=== PATIENT | male | born 2005 | race Two or more races ===

== ENCOUNTER 2025-06-02 20:51 | Emergency (ER) | payer MEDICAID, SELFPAY ==
[2025-06-02 20:54] VITALS: BMI 22.9
--- NOTE | 2025-06-02 21:05 | XR_ITS ---
Examination: Wrist, left 3 views Technique: Wrist AP, oblique, lateral 3 views Date and time of exam: June 02, 2024 0906 hrs. Indications: Patient fell today with into the wrist, wrist pain. Findings: Fractures distal third of the navicular without significant displacement Radius ulna intact Impression: Acute fractures distal third of the navicular without significant displacement
[2025-06-02 22:19] VITALS: BP 125/76; PULSE 73; RESP 16; TEMP 37; O2SAT 99
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
[2025-06-02] MEDS: IBUPROFEN TAB 400 MG TABLET 800 MG PO (22:51)
== END 2025-06-02 22:58 | disposition home or self-care (01) ==
PROVIDERS: Emergency Provider Emergency Medicine; PCP Family Medicine
DX: S92.255A Nondisplaced fracture of navicular [scaphoid] of left foot, initial encounter for closed fracture (principal); V29.91XA Electric (assisted) bicycle rider (driver) (passenger) injured in unspecified traffic accident, initial encounter
CPT/HCPCS: 29125; 73110; 99283; A9270

== ENCOUNTER → 2025-06-27 | Outpatient (CLI) | payer MEDICAID, SELFPAY ==
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
--- NOTE | 2025-06-27 15:57 | XR_ITS ---
Examination: Wrist, left 3 views Technique: Wrist AP, oblique, lateral 3 views Date and time of exam: June 27, 2025, 1600 hours, comparison 06/02/2025 INDICATIONS: Navicular fracture 06/02/2025 FINDINGS: Partial healing fracture distal navicular with stable and satisfactory alignment IMPRESSION: Partial healing fracture distal navicular with stable and satisfactory alignment.
== END | disposition home or self-care (01) ==
LOC: CDIM 15:52
PROVIDERS: Referring Provider Nurse Practitioner Gerontology; Visit Provider Nurse Practitioner Gerontology
DX: M25.532 Pain in left wrist (principal); M79.642 Pain in left hand; Z87.81 Personal history of (healed) traumatic fracture
CPT/HCPCS: 73110; 73130

== ENCOUNTER 2025-09-13 15:00 | Outpatient (RCR) | payer MEDICAID, SELFPAY ==
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
--- NOTE | 2025-09-13 15:52 | PT.ODAYNRPT ---
PT Outpatient Daily Note OP Daily Note Outpatient Physical Therapy Treatment Date: 09/13/25 Visit Reasons: LEFT WRIST SURGERY Subjective: Pt's left hand is better. Pt still feels fatigue after work hours. Objective: Please see flow chart for list of ther ex performed Assessment: tolerate exercises with minimal pain; patient demonstrate slight increase pain with wrist extension during power web exercise Plan: Continue with PT Length of Time (minutes) of Treatment: 30 Minutes Procedure Charges Therapeutic Exercise 30 minutes: Yes
== END 2025-09-14 23:59 | disposition home or self-care (01) ==
LOC: CPTX 15:00
PROVIDERS: PCP Nurse Practitioner Gerontology; Referring Provider Nurse Practitioner Gerontology; Visit Provider Nurse Practitioner Gerontology
DX: M79.642 Pain in left hand (principal); R53.1 Weakness; S62.012D Displaced fracture of distal pole of navicular [scaphoid] bone of left wrist, subsequent encounter for fracture with routine healing; X58.XXXD Exposure to other specified factors, subsequent encounter
CPT/HCPCS: 97110; 97162